=== PATIENT | female | born 1960 | race Caucasian/White ===

== ENCOUNTER 2018-07-14 06:14 | Inpatient (IN) | payer MEDICARE, BC ==
[2018-07-04 12:12] VITALS: BMI 36.1
--- NOTE | 2018-07-05 13:50 | PREOPHP ---
DATE OF ADMISSION: 07/14/2018 Patient to have surgery with Dr. Lata Godoy on 07/14/2018. REASON FOR CONSULTATION: Consultation requested by Dr. Lata Godoy for medical evaluation and lew arance of a 57-year-old woman about to undergo surgery. Thank you, Dr. Godoy for allowing us to participate in the care of this patient. Kaitlin Beltrán is a 57-year-old woman with multiple musculoskeletal problems, currently being admitted for a shoulder replacement on the right side for severe degenerative joint disease. HISTORY OF PRESENT ILLNESS: In terms of her past medical and surgical history, she has had no medica l hospitalizations and her deliveries were vaginal. PAST SURGICAL HISTORY: Has included the following: She had posterior spinal fusion L2 through L5, h ad a right total knee replacement, right ankle fusion and tibial precise insertion, had a right femur osteoplasty and iliotibial band release had a right femur osteoplasty carpal tunnel surgery, both wr ists. Right arm rotator cuff repair, biceps tendonitis and subacromial decompression and debridement and also had a total knee arthroscopic procedure on the left. She has not really broken any bones. MEDICATIONS: She is currently taking the following medications: 1. Levothyroxine 25 mcg per day. 2. Nature-Throid 32.5 mg per day. 3. Amlodipine/Valsartan 5/160 one a day. 4. Bystolic 10 mg a day. 5. Gabapentin 600 mg at night. 6. Progesterone 100 mg capsule in the evening. 7. Crestor 5 mg daily. 8. Estradiol patch 0.05 mcg q.24h patch twice a week. 9. Multivitamins. 10. Glucosamine. 11. Vitamin D. ALLERGIES: SHE IS ALLERGIC TO: 1. OXYCODONE 2. AMBIEN. SOCIAL HISTORY: The patient is , has 2 children, 1 grandchild. She does not smoke or drink a lcohol or coffee. Has no difficulty sleeping at night and is employed. FAMILY HISTORY: Both parents are of heart disease, hypertension in the father and mother radha th in their 50s. Three sisters are in good health. Family history of heart, cancer and hypertension as well as thyroid. REVIEW OF SYSTEMS HEENT: Denies any significant headaches. CARDIORESPIRATORY: Denies any chest pain or shortness of breath. GASTROINTESTINAL: No melena or hematemesis. GENITOURINARY: No urgency, frequency. GYNECOLOGIC: Postmenopausal up to date. MUSCULOSKELETAL: Positive for right shoulder pain. NEUROPSYCHIATRIC: Unremarkable. GENERAL HEALTH: As above. PHYSICAL EXAMINATION: VITAL SIGNS: The patient's blood pressure was 140/70, pulse was 68 and regular, respirations were 18 , temperature 97.6. Height 5 feet 2 inches, weight 201 pounds. GENERAL: The patient was noted to be a well-developed, well-nourished female, alert and cooperative, in no apparent acute distress, oriented to time, place, and person. HEAD, EARS, EYES, NOSE AND THROAT: Head was atraumatic. Eyes: Pupils were equal, reactive to light and accommodation. Fundi were grossly benign. Tympanic membranes were unremarkable. Nose was nega tive. Mouth was unremarkable. Fair oral hygiene was present. NECK: Supple without any rigidity. Trachea was midline. Thyroid was within normal limits. Neck ve ins were flat. Carotid pulses were equal. No bruits were heard. BACK: Unremarkable. CHEST: Other than scar from prior surgeries, chest was symmetrical. BREASTS AND AXILLARY: Did not reveal any obvious masses. LUNGS: Clear to percussion and auscultation. HEART: PMI is fifth intercostal space at the midclavicular line. Regular sinus rhythm was noted. N o significant murmurs, rubs, or gallops being elicited. ABDOMEN: Soft, good bowel sounds were noted. No significant organomegaly, masses, or tenderness. PELVORECTAL: Up to date per career coordinator. EXTREMITIES: Did not reveal any clubbing, edema or cyanosis. Scars were noted and deformities of radha th feet, but predominantly the right foot. Peripheral pulses were physiologic. SKIN: Moist and warm without any eruptions. No gross lymphadenopathy was noted. NEUROLOGIC: Grossly intact. IMPRESSION: 1. Degenerative joint disease, right shoulder. 2. Hypertension. 3. Hypothyroidism. 4. Degenerative joint disease. 5. Menopausal syndrome, on hormone replacement therapy. 6. Congenital deformities postop lower extremities. 7. Stable health. LABORATORY DATA: Review of laboratory and other data revealed the following: The patient's chemistr y panel revealed normal electrolytes, random glucose of 122. Normal BUN, creatinine, calcium, uric a estuardo, liver function tests were normal. Magnesium was slightly high at 2.2. Serum iron was slightly low at 55. CBC, UA, PT and PTT were normal. Patient's EKG was normal. Patient's chest x-ray reveal ed some degenerative joint disease of the spine, no acute infiltrates being noted nor any acute cardi opulmonary changes being noted. DISCUSSION: Dr. Godoy, I see no contraindication to this patient undergoing current proposed surge ry under desired form of anesthesia. I feel she is a suitable candidate at this particular point in time and will be more than happy to follow her along with you during her stay at [facility]. Thank you again, Dr. Godoy, for allowing us to participate in the care of this patient. Dictated By: DELTA RAMOS MD SS/NTS Conf#: [id number] DID#: [id number] CC: LATA GODOY MD;*EndCC*
[~2018-07-14] VITALS: Ht 157.5 cm; Wt 91.6 kg
[2018-07-14] VITALS (36 sets, daily range): BP systolic 108–151; BP diastolic 60–98; PULSE 71–114; RESP 13–23; Ht 157.5 cm; Wt 91.6 kg
--- NOTE | 2018-07-14 05:53 | HPN ---
Date/Time of Note Date/Time of Note DATE: 07/14/18 TIME: 05:52 Interval H&P Admission Note Pt. seen H&P reviewed: No system changes LATA GODOY MD Jul 14, 2018 05:53
--- NOTE | 2018-07-14 05:55 | OPR ---
Date/Time of Note Date/Time of Note DATE: 07/14/18 TIME: 05:53 Operative Report Procedure Date: Jul 14, 2018 Preoperative Diagnosis Right shoulder secondary arthritis Postoperative Diagnosis 1. Right shoulder secondary arthritis 2. Right shoulder massive, unrepairable rotator cuff tear Operation/Procedure Performed 1. Right reverse total shoulder replacement 2. Right shoulder injection of PRP Surgeon see signature line Fork Assembler Delvin Eldridge DO Anesthesia Type: general Estimated Blood Loss: 100 - 150 ml's Transfusion none Specimen None Grafts/Implants See op note Complications none Pt Condition Post Procedure: stable Disposition: PACU Procedure Description TELEVISION AUDIO ENGINEER SURGEON: Delvin Eldridge DO was asked to be present for this case at my request. Assistance was necessary as a result of the highly technical nature of this operation. When performing an open total shoulder replacement, it is critical to have a trained hospital medical assistant who is an expert in handling the extremity and assisting the surgeon in tasks such as manipulation of the arm, protection of the neurovascular structures and positioning the implants. This assistance cannot be performed by a rf technician, as it is considered an integral part of the procedure and the hospital medical assistant should be compensated for his time. PROCEDURE IN DETAIL: Following the administration of general anesthesia supplemented with a peripheral nerve block for postoperative pain control, the patient was examined under anesthesia. Examination of the right shoulder revealed very significant stiffness including a forward flexion of about 80 degrees abduction 60 degrees maximal external rotation 45 degrees with severe crepitus. There was anteroposterior escape of the humeral head, also. The left forearm was prepped and 60 cc of blood were drawn using a 60 cc syringe coated with anticoagulant. The blood was harvested from the patient and given to the retention representative who prepared PRP concentrate. The patient was then placed in the beach chair position. Sterile prep and drape was then undertaken. An extended deltopectoral incision was then carried through the interval exposing the conjoined tendon and retracting it medially. The superior aspect of the acromioclavicular joint was then identified. The AC capsule was incised and the distal clavicle skeletonized for a distance of 10 mm. Severe arthritic changes were noted. The clavicle was then osteotomized and 10 mm were removed. The joint was irrigated and closed using #2 sutures. Attention was then directed back to the deltopectoral interval and the subscapularis was noted to be partially disrupted superiorly. Severe arthritic changes were noted with very large peripheral osteophytes. The superior rotator cuff was torn and retracted. The biceps tendon was chronically torn and retracted A humeral head osteotomy was then created in the appropriate degree of version and inclination. The humerus was retracted and the glenoid was exposed. Peripheral osteophytes were removed and a complete capsulectomy performed. The central canal of the glenoid was then entered and prepared for a size entered Depuy baseplate. A standard Depuy baseplate was then applied with four peripheral screws and solid fixation. A 38 mm glenosphere was then applied, with solid fixation. The humerus was then reamed and prepared for a 8 mm humeral component with a standard metaphyseal component and a 6 mm liner. The shaft was irrigated and the PRP injection was placed within the canal the actual components were implanted with solid fixation. The arm was taken through full range of motion with no evident instability. The joint was then thoroughly irrigated, the deep tissues were approximated using #1 suture followed by closure of the deep layer using 2-0 Monocryl. The skin was closed using 4-0 Monocryl suture, and a Prenio dressing. An Ultrasling was then applied. The patient was awakened and transported to the recovery room in stable condition. Estimated blood loss for this procedure was 150 cc. Radiographs will be obtained in the recovery room. LATA GODOY MD Jul 14, 2018 05:55
[~2018-07-14 06:14] MED LIST: AMLO-350 PO; CHOL100062 PO; CRES5 PO; ESTR1PAT45 TD; GABA-526 PO; GLUC15006 PO; LEVO25TA50 PO; MULTI PO; PROG100C15 PO; TEMA15CA PO; THYR32.58 PO
[2018-07-14] MEDS ORDERED: GABAPENTIN 300 MG CAP PO ONE (06:30)
[2018-07-14] MEDS ORDERED: DEXAMETHASONE 1 MG TAB PO ONE (06:30)
[2018-07-14] MEDS ORDERED: CEFAZOLIN 2 GM/50 ML (PMX) 50 ML IVPB ONE (06:30)
[2018-07-14] MEDS ORDERED: BUPIVACAINE 0.5% (SDV) 30 ML, morphine SULFATE (PF) 8 MG, EPINEPHrine 0.3 MG, KETOROLAC... IRR SCH ×7 (06:30)
[2018-07-14] MEDS ORDERED: TRANEXAMIC ACID 1,000 MG in DEXTROSE 5% 100 ML IVPB ONE (06:30)
[2018-07-14] MEDS ORDERED: POLYMYXIN/BACITRACIN 1L IRRIG ONE (07:06)
[2018-07-14] MEDS ORDERED: BUPIVACAINE 0.5%/EPI (SDV) 30 ML INJ ONE (07:06)
[2018-07-14] MEDS ORDERED: THROMBIN 5000 UNIT VIAL ONE (07:06)
[2018-07-14] MEDS ORDERED: CA CHLORIDE 10% 10 ML SYRINGE ONE (07:06)
--- NOTE | 2018-07-14 08:01 | PREAC ---
Date/Time of Note Date/Time of Note DATE: 07/14/18 TIME: 07:59 Anesthesia Eval and Record Evaluation Time Pre-Procedure Interview DATE: 07/14/18 TIME: 07:59 Age 57 Sex female NPO: 8 hrs Preoperative diagnosis Right Shoulder OA Planned procedure Right Reverse Total Shoulder Replacement Past Medical History Past Medical History: Includes Cardio: HTN, Dyslipidemia Endo: Hypothyroid GI: Obesity Surgery & Anesthesia Issues No known issue Meds Anticoagulation: No Beta Anthony within 24 hr: No Reason Beta Anthony not given: Pt. not on B-Anthony Reported Medications Glucosamine Hcl (Glucosamine Hcl) 1,500 Mg Tablet, 1500 MG PO DAILY, TAB 07/04/18 Temazepam* (Temazepam*) 15 Mg Capsule, 15-30 MG PO HS PRN for INSOMNIA, CAP 07/04/18 Cholecalciferol* (Vitamin D3*) 1,000 Unit Tablet, 1000 UNIT PO DAILY, TAB 07/04/18 Multivitamins* (Theragran*) 1 Tab Tab, 1 TAB PO DAILY, TAB 07/04/18 Estradiol/Levonorgestrel (Climara Pro Patch) 1 Each Patch.tdwk, 1 EACH TD EVERY WEDNESDAY AND WED PT HAS PATCH ON 07-14-18 07/04/18 Rosuvastatin Calcium* (Crestor*) 5 Mg Tablet, 5 MG PO QHS, #30 TAB 07/04/18 Progesterone,Micronized* (Prometrium*) 100 Mg Capsule, 100 MG PO HS, CAP 07/04/18 Gabapentin* (Gabapentin*) 600 Mg Tablet, 600 MG PO QHS, #60 TAB 07/04/18 Amlodipine/Valsartan (Amlodipine-Valsartan 5-160 mg) 1 Each Tablet, 1 TAB PO DAILY, #30 TAB PT HAS MED IN CASE WE DONT HAVE IN THE PHARMACY 07/04/18 Thyroid,Pork (Nature-Throid) 32.5 Mg Tablet, 32.5 MG PO DAILY, TAB TO BE TAKEN WITH LEVOTHYROXINE 07/04/18 Levothyroxine Sodium* (Levoxyl*) 25 Mcg Tablet, 25 MCG PO BEFORE BREAKFAST, #30 TAB 07/04/18 Meds reviewed: Yes Allergies Coded Allergies: acetaminophen (Verified Adverse Reaction, Unknown, NIGHTMARES, 07/14/18) oxycodone (Verified Adverse Reaction, Unknown, NIGHTMARES, 07/14/18) zolpidem (Verified Adverse Reaction, Unknown, NIGHTMARES, 07/14/18) Allergies Reviewed: Yes Labs/Studies Labs Reviewed: Reviewed by anesthesiologist test: N/A Studies: ECG (n/a), CXR (n/a) Pre-procedure Exam Last vitals Vital Signs Date Temp Pulse Resp B/P (MAP) Pulse Ox O2 O2 Flow FiO2 Time Delivery Rate 07/14/18 97.1 71 18 136/84 97 Room Air 07:10 (101) Airway: Adequate mouth opening, Adequate thyromental dist Mallampati: Mallampati II Teeth: Normal Lung: Normal Heart: Normal ASA Physical Status ASA physical status: 3 Emergency: None Planned Anesthetic General/MAC: ETT Nerve block: Brachial plexus (right) Planned Pain Management Single shot nerve block, Parenteral pain med Pre-operative Attestations Prior to commencing anesthesia and surgery, the patient was re-evaluated, there was verification of: *The patient's identity *The results of appropriate recent lab work and preoperative vital signs *The above evaluation not changing prior to induction *Anesthetic plan, risk benefits, alternative and complications discussed with patient/family; questions answered; patient/family understands, accepts and wishes to proceed. JEAN CONNORS MD Jul 14, 2018 08:00
[2018-07-14] MEDS ORDERED: PROPOFOL 20 ML ONE (08:04)
[2018-07-14] MEDS ORDERED: ROPIVACAINE 0.5 % 30 ML VIAL ONE (08:04)
[2018-07-14] MEDS ORDERED: MIDAZOLAM 1 MG/ML 2 ML INJ ONE (08:04)
[2018-07-14] MEDS ORDERED: CEFAZOLIN 1 GM INJ ONE (08:04)
[2018-07-14] MEDS ORDERED: ROCURONIUM 50 MG INJ ONE (08:04)
[2018-07-14] MEDS ORDERED: FENTAnyl 50 MCG/ML VIAL IV PRN ×3 (08:30)
[2018-07-14] MEDS ORDERED: DIPHENHYDRAMINE 50 MG INJ IV PRN ×2 (08:30→10:30)
[2018-07-14] MEDS ORDERED: LABETALOL HCL 20MG INJ IV PRN (08:30)
[2018-07-14] MEDS ORDERED: ONDANSETRON 4 MG INJ IV PRN ×2 (08:30→10:30)
[2018-07-14] MEDS ORDERED: MEPERIDINE 25 MG INJ IV PRN (08:30)
[2018-07-14] MEDS ORDERED: METOCLOPRAMIDE 10 MG INJ ONE (08:30)
[2018-07-14] MEDS ORDERED: METOCLOPRAMIDE 10 MG INJ IV PRN (08:30)
[2018-07-14] MEDS ORDERED: DEXAMETHASONE 4 MG/ML 5 ML INJ ONE (08:30)
[2018-07-14] MEDS ORDERED: hydrALAzine 20 MG INJ IV PRN (08:30)
[2018-07-14] MEDS ORDERED: ONDANSETRON 4 MG INJ ONE (08:30)
[2018-07-14] MEDS ORDERED: KETOROLAC 30 MG INJ ONE (08:30)
[2018-07-14] MEDS ORDERED: HYDROmorphONE 1 MG/5 ML IV SYRINGE IV PRN ×3 (08:30)
[2018-07-14] MEDS ORDERED: EPHEDrine SULFATE 50 MG/5 ML SYG IV PRN (08:30)
[2018-07-14] MEDS ORDERED: POLYMYXIN/BACITRACIN 1L IRRIG IRR ONE (09:20)
[2018-07-14] MEDS ORDERED: SUGAMMADEX SODIUM 200 MG/2 ML VIAL IV ONE (10:04)
[2018-07-14] MEDS ORDERED: LOPERAMIDE 2 MG CAP PO PRN (10:30)
[2018-07-14] MEDS ORDERED: MAGNESIUM HYDROXIDE 30ML CUP PO PRN (10:30)
[2018-07-14] MEDS ORDERED: oxyCODONE 5 MG TAB PO PRN ×3 (10:30)
[2018-07-14] MEDS ORDERED: ZOLPIDEM 5 MG TAB PO PRN (10:30)
[2018-07-14] MEDS ORDERED: KETOROLAC 15 MG INJ IV PRN (10:30)
[2018-07-14] MEDS ORDERED: NACL 0.9% 3 ML SYG IV SCH (10:30)
--- NOTE | 2018-07-14 10:31 | PAC ---
Date/Time of Note Date/Time of Note DATE: 07/14/18 TIME: 10:30 Post-Anesthesia Notes Post-Anesthesia Note Last documented vital signs Vital Signs Date Temp Pulse Resp B/P (MAP) Pulse Ox O2 O2 Flow FiO2 Time Delivery Rate 07/14/18 97.9 71 18 136/84 97 Face Mask 8 L 10:30 (101) Activity: WNL Respiratory function: WNL Cardiovascular function: WNL Mental status: Baseline Pain reasonably controlled: Yes Hydration appropriate: Yes Nausea/Vomiting absent: Yes JEAN CONNORS MD Jul 14, 2018 10:31
[2018-07-14] MEDS ORDERED: CEFAZOLIN 1 GM/50 ML (PMX) 50 ML IVPB ONE (10:36)
[2018-07-14] MEDS: CEFAZOLIN 1 GM/50 ML (PMX) 50 ML IVPB SCH ×2 (11:28→18:06)
[2018-07-14] MEDS: DEXAMETHASONE 2 MG TAB PO SCH ×3 (12:00→23:30)
[2018-07-14] MEDS: ACETAMINOPHEN 500 MG TAB PO SCH ×3 (12:00→23:34)
[2018-07-14] MEDS ORDERED: TRANEXAMIC ACID 1,000 MG in SOD CHLORIDE 0.9% 100 ML IVPB SCH (12:00)
--- NOTE | 2018-07-14 17:59 | CONS ---
Date/Time of Note Date/Time of Note DATE: 07/14/18 TIME: 17:55 Consult Date/Type/Reason Admit Date/Time Jul 14, 2018 at 06:14 Initial Consult Date 07/04/2018 Type of Consultation: internal medicine Reason for Consultation pre-op evaluation and clearance Requesting Provider: LATA GODOY MD Subjective no complaints comfortable post op Objective Vital Signs Date Temp Pulse Resp B/P (MAP) Pulse Ox O2 O2 Flow FiO2 Time Delivery Rate 07/14/18 98.3 96 13 119/78 96 Nasal 2.0 11:26 (92) Cannula Exam vital signs stable HEENT negative lungs clear heart regular rhythm Results/Medications Medications Current Medications Fentanyl (Sublimaze) 25 mcg PACU ORDER PRN IV MILD PAIN LEVEL 1-3; Start 07/14/18 at 08:30; Stop 07/14/18 at 18:00 Fentanyl (Sublimaze) 50 mcg PACU ORDER PRN IV MODERATE PAIN LEVEL 4-6; Start 07/14/18 at 08:30; Stop 07/14/18 at 18:00 Fentanyl (Sublimaze) 75 mcg PACU ORDER PRN IV SEVERE PAIN LEVEL 7-10; Start 07/14/18 at 08:30; Stop 07/14/18 at 18:00 Ondansetron HCl (Zofran Inj) 4 mg PACU ORDER PRN IV NAUSEA AND/OR VOMITING; Start 07/14/18 at 08:30; Stop 07/14/18 at 18:00 Metoclopramide HCl (Reglan) 10 mg PACU ORDER PRN IV NAUSEA AND/OR VOMITING; Start 07/14/18 at 08:30; Stop 07/14/18 at 18:00 Labetalol HCl (Labetalol) 5 mg PACU ORDER PRN IV ELEVATED BLOOD PRESSURE; Start 07/14/18 at 08:30; Stop 07/14/18 at 18:00 Hydralazine HCl (Apresoline) 5 mg PACU ORDER PRN IV ELEVATED BLOOD PRESSURE; Start 07/14/18 at 08:30; Stop 07/14/18 at 18:00 Ephedrine Sulfate 5 mg PACU ORDER PRN IV BLOOD PRESSURE SUPPORT; Start 07/14/18 at 08:30; Stop 07/14/18 at 18:00 Meperidine HCl (Demerol) 25 mg PACU ORDER PRN IV POST OPERATIVE SHIVERING; Start 07/14/18 at 08:30; Stop 07/14/18 at 18:00 Diphenhydramine HCl (Benadryl) 25 mg PACU ORDER PRN IV PRURITUS; Start 07/14/18 at 08:30; Stop 07/14/18 at 18:00 Gabapentin (Neurontin) 600 mg QHS PO ; Start 07/14/18 at 21:00 Levothyroxine Sodium (Synthroid) 25 mcg BEFORE BREAKFAST PO ; Start 07/15/18 at 07:00 Progesterone (Prometrium) 100 mg HS PO ; Start 07/14/18 at 21:00 Amlodipine Besylate (Norvasc) 5 mg DAILY PO ; Start 07/15/18 at 09:00 Miscellaneous Information 32.5 mg DAILY PO ; Start 07/15/18 at 09:00; Status UNV Cefazolin Sodium 50 ml @ 100 mls/hr Q8H IVPB Last administered on 07/14/18at 11:28; Admin Dose 100 MLS/HR; Start 07/14/18 at 10:30; Stop 07/15/18 at 02:59 Senna/Docusate Sodium (Senokot-S) 1 tab BID PO ; Start 07/14/18 at 21:00 Simethicone (Mylicon) 80 mg TID PRN PO DISTENSION/GAS/BLOATING; Start 07/14/18 at 10:30 Magnesium Hydroxide (Milk Of Mag) 30 ml BID PRN PO CONSTIPATION; Start 07/14/18 at 10:30 Loperamide HCl (Imodium Cap) 2 mg Q6H PRN PO DIARRHEA; Start 07/14/18 at 10:30 Dexamethasone (Decadron) 2 mg Q6 PO Last administered on 07/14/18at 12:00; Admin Dose 2 MG; Start 07/14/18 at 12:00; Stop 07/15/18 at 06:01 Acetaminophen (Tylenol Tab) 500 mg Q6 PO Last administered on 07/14/18at 12:00; Admin Dose 500 MG; Start 07/14/18 at 12:00 Oxycodone HCl (Roxicodone) 15 mg Q4H PRN PO PAIN; Start 07/14/18 at 10:30 Oxycodone HCl (Roxicodone) 10 mg Q4H PRN PO PAIN; Start 07/14/18 at 10:30 Oxycodone HCl (Roxicodone) 5 mg Q4H PRN PO PAIN; Start 07/14/18 at 10:30 Hydromorphone HCl (Dilaudid) 1 mg Q4H PRN IV BREAKTHROUGH PAIN; Start 07/14/18 at 10:30 Ketorolac Tromethamine (Toradol) 15 mg Q6H PRN IV PAIN; Start 07/14/18 at 10:30 Ondansetron HCl (Zofran Inj) 4 mg Q6H PRN IV NAUSEA AND/OR VOMITING; Start 07/14/18 at 10:30 Diphenhydramine HCl (Benadryl) 25 mg Q6H PRN IV PRURITUS; Start 07/14/18 at 10:30 IV Flush (NS 3 ml) 3 ml per protocol IV ; Start 07/14/18 at 10:30 Atorvastatin Calcium (Lipitor) 20 mg DAILY@21 PO ; Start 07/14/18 at 21:00 Losartan Potassium (Cozaar) 100 mg DAILY PO ; Start 07/15/18 at 09:00 Assessment/Plan Chief Complaint/Hosp Course status post right shoulder replacement doing well Additional Assessment/Plan pre-op meds reordered will follow with you thank you DELTA Campbell MD Jul 14, 2018 17:59
[2018-07-14] MEDS: SENNA/DOCUSATE NA (8.6MG/50MG) TAB PO SCH (20:14)
[2018-07-14] MEDS ORDERED: PROGESTERONE 100 MG CAP PO SCH (21:00)
[2018-07-14] MEDS ORDERED: ATORVASTATIN 20 MG TAB PO SCH (21:00)
[2018-07-14] MEDS ORDERED: GABAPENTIN 300 MG CAP PO SCH ×2 (21:00)
[2018-07-14] MEDS ORDERED: LORAZEPAM 1 MG TAB PO PRN (21:00)
[2018-07-14] MEDS ORDERED: NON-FORMULARY/PATIENT OWN MED (Rosuvastatin Calcium* (Crestor*) 5 MG) PO SCH (21:00)
[2018-07-14] MEDS: HYDROmorphONE 1 MG/ML SYG IV PRN (23:18)
[2018-07-15 00:03] VITALS: BP 129/71; PULSE 101; RESP 20
[2018-07-15] MEDS: CEFAZOLIN 1 GM/50 ML (PMX) 50 ML IVPB SCH (02:50)
[2018-07-15] MEDS: HYDROmorphONE 1 MG/ML SYG IV PRN ×2 (04:18→08:03)
[2018-07-15 05:00] VITALS: BP 131/69; PULSE 99; RESP 18
--- NOTE | 2018-07-15 06:09 | PN ---
Date/Time of Note Date/Time of Note DATE: 07/15/18 TIME: 06:08 Subjective Awake alert with minimal complaints. Objective Vitals Vital Signs Date Temp Pulse Resp B/P (MAP) Pulse Ox O2 O2 Flow FiO2 Time Delivery Rate 07/15/18 98.1 101 20 129/71 96 00:03 (90) 07/14/18 Room Air 16:03 07/14/18 2.0 13:56 Intake and Output 07/14/18 07/14/18 07/15/18 1515:00 23:00 07:00 IntakeIntake Total 1110 ml 780 ml 50 ml OutputOutput Total 50 ml 700 ml 1000 ml BalanceBalance 1060 ml 80 ml -950 ml Wound clean and dry. Neurologically intact. No signs of DVT. Medications Medications Current Medications Gabapentin (Neurontin) 600 mg QHS PO Last administered on 07/14/18at 20:14; Admin Dose 600 MG; Start 07/14/18 at 21:00 Levothyroxine Sodium (Synthroid) 25 mcg BEFORE BREAKFAST PO ; Start 07/15/18 at 07:00 Progesterone (Prometrium) 100 mg HS PO Last administered on 07/14/18at 20:14; Admin Dose 100 MG; Start 07/14/18 at 21:00 Amlodipine Besylate (Norvasc) 5 mg DAILY PO ; Start 07/15/18 at 09:00 Miscellaneous Information 32.5 mg DAILY PO ; Start 07/15/18 at 09:00; Status UNV Senna/Docusate Sodium (Senokot-S) 1 tab BID PO Last administered on 07/14/18at 20:14; Admin Dose 1 TAB; Start 07/14/18 at 21:00 Simethicone (Mylicon) 80 mg TID PRN PO DISTENSION/GAS/BLOATING; Start 07/14/18 at 10:30 Magnesium Hydroxide (Milk Of Mag) 30 ml BID PRN PO CONSTIPATION; Start 07/14/18 at 10:30 Loperamide HCl (Imodium Cap) 2 mg Q6H PRN PO DIARRHEA; Start 07/14/18 at 10:30 Acetaminophen (Tylenol Tab) 500 mg Q6 PO Last administered on 07/14/18at 23:34; Admin Dose 500 MG; Start 07/14/18 at 12:00 Oxycodone HCl (Roxicodone) 15 mg Q4H PRN PO PAIN; Start 07/14/18 at 10:30 Oxycodone HCl (Roxicodone) 10 mg Q4H PRN PO PAIN; Start 07/14/18 at 10:30 Oxycodone HCl (Roxicodone) 5 mg Q4H PRN PO PAIN; Start 07/14/18 at 10:30 Hydromorphone HCl (Dilaudid) 1 mg Q4H PRN IV BREAKTHROUGH PAIN Last administered on 07/15/18at 04:18; Admin Dose 1 MG; Start 07/14/18 at 10:30 Ketorolac Tromethamine (Toradol) 15 mg Q6H PRN IV PAIN; Start 07/14/18 at 10:30 Ondansetron HCl (Zofran Inj) 4 mg Q6H PRN IV NAUSEA AND/OR VOMITING; Start 07/14/18 at 10:30 Diphenhydramine HCl (Benadryl) 25 mg Q6H PRN IV PRURITUS; Start 07/14/18 at 10 :30 IV Flush (NS 3 ml) 3 ml per protocol IV ; Start 07/14/18 at 10:30 Atorvastatin Calcium (Lipitor) 20 mg DAILY@21 PO Last administered on 07/14/18at 20:11; Admin Dose 20 MG; Start 07/14/18 at 21:00 Losartan Potassium (Cozaar) 100 mg DAILY PO ; Start 07/15/18 at 09:00 Lorazepam (Ativan) 1 mg QHS PRN PO INSOMNIA; Start 07/14/18 at 21:00 VTE Prophylaxis Risk score (from Nsg)>0 risk: 8 SCD applied (from Ns): Yes Lines/Catheters IV Catheter Type: Saline Lock Angela in Place: No Assessment/Plan Assessment/Plan Assessment: Status post total shoulder Plan: Discharge home after PT LATA GODOY MD Jul 15, 2018 06:09
--- NOTE | 2018-07-15 06:10 | PDOCDIS ---
Discharge Instructions DIAGNOSIS Discharge Diagnosis Shoulder arthritis CONDITION [id number] Patient Condition: [id number] Good HOME CARE INSTRUCTIONS: [id number] Diet Instructions: [id number] Regular [id number] Special Diet: [id number] REGULAR DIET ACTIVITY: [id number] Activity Restrictions: [id number] Rest between Activity Keep Limb Elevated [id number] Bathing Restrictions: [id number] Shower FOLLOW UP/APPOINTMENTS Follow-up Plan 2 weeks in the office SCHOOL/WORK RELEASE May return to School/Work with: With Restrictions School/Work Release Comment: 5 pound tabletop usage LATA GODOY MD Jul 15, 2018 06:10
--- NOTE | 2018-07-15 06:10 | DS ---
Date/Time of Note Date/Time of Note DATE: 07/15/18 TIME: 06:10 Discharge Summary Admission/Discharge Info Admit Date/Time Jul 14, 2018 at 06:14 Discharge Date/Time July 15, 2018 Discharge Diagnosis Shoulder arthritis Patient Condition: Good Hospital Course Admitted and underwent uncomplicated procedure. Postop day 1 discharge home after therapy Home Meds Reported Medications Glucosamine Hcl (Glucosamine Hcl) 1,500 Mg Tablet, 1500 MG PO DAILY, TAB 07/04/18 Temazepam* (Temazepam*) 15 Mg Capsule, 15-30 MG PO HS PRN for INSOMNIA, CAP 07/04/18 Cholecalciferol* (Vitamin D3*) 1,000 Unit Tablet, 1000 UNIT PO DAILY, TAB 07/04/18 Multivitamins* (Theragran*) 1 Tab Tab, 1 TAB PO DAILY, TAB 07/04/18 Estradiol/Levonorgestrel (Climara Pro Patch) 1 Each Patch.tdwk, 1 EACH TD EVERY WEDNESDAY AND WED PT HAS PATCH ON 07-14-18 07/04/18 Rosuvastatin Calcium* (Crestor*) 5 Mg Tablet, 5 MG PO QHS, #30 TAB 07/04/18 Progesterone,Micronized* (Prometrium*) 100 Mg Capsule, 100 MG PO HS, CAP 07/04/18 Gabapentin* (Gabapentin*) 600 Mg Tablet, 600 MG PO QHS, #60 TAB 07/04/18 Amlodipine/Valsartan (Amlodipine-Valsartan 5-160 mg) 1 Each Tablet, 1 TAB PO DAILY, #30 TAB PT HAS MED IN CASE WE DONT HAVE IN THE PHARMACY 07/04/18 Thyroid,Pork (Nature-Throid) 32.5 Mg Tablet, 32.5 MG PO DAILY, TAB TO BE TAKEN WITH LEVOTHYROXINE 07/04/18 Levothyroxine Sodium* (Levoxyl*) 25 Mcg Tablet, 25 MCG PO BEFORE BREAKFAST, #30 TAB 07/04/18 Follow-up Plan 2 weeks in the office Primary Care Provider Not On Staff Doctor LATA GODOY MD Jul 15, 2018 06:10
[2018-07-15] MEDS: DEXAMETHASONE 2 MG TAB PO SCH (06:13)
[2018-07-15] MEDS: ACETAMINOPHEN 500 MG TAB PO SCH (06:13)
[2018-07-15] MEDS ORDERED: LEVOTHYROXINE 25 MCG TAB PO SCH (07:00)
[2018-07-15 07:25] VITALS: BP 151/72; PULSE 98; RESP 19
--- NOTE | 2018-07-15 07:50 | CONS ---
Date/Time of Note Date/Time of Note DATE: 07/15/18 TIME: 07:47 Consult Date/Type/Reason Admit Date/Time Jul 14, 2018 at 06:14 Initial Consult Date 07/04/2018 Type of Consultation: internal medicine Reason for Consultation medical post-op f/u Requesting Provider: LATA GODOY MD Subjective feeling well had trouble sleeping due to usual medication not available Objective Vital Signs Date Temp Pulse Resp B/P (MAP) Pulse Ox O2 O2 Flow FiO2 Time Delivery Rate 07/15/18 98.2 98 19 151/72 98 07:25 (98) 07/15/18 Room Air 05:00 07/14/18 2.0 13:56 Intake and Output 07/14/18 07/14/18 07/15/18 1515:00 23:00 07:00 IntakeIntake Total 1110 ml 780 ml 50 ml OutputOutput Total 50 ml 700 ml 1000 ml BalanceBalance 1060 ml 80 ml -950 ml Exam vital signs stable HEENT negative Results/Medications Medications Current Medications Gabapentin (Neurontin) 600 mg QHS PO Last administered on 07/14/18at 20:14; Admin Dose 600 MG; Start 07/14/18 at 21:00 Levothyroxine Sodium (Synthroid) 25 mcg BEFORE BREAKFAST PO Last administered on 07/15/18at 06:13; Admin Dose 25 MCG; Start 07/15/18 at 07:00 Progesterone (Prometrium) 100 mg HS PO Last administered on 07/14/18at 20:14; Admin Dose 100 MG; Start 07/14/18 at 21:00 Amlodipine Besylate (Norvasc) 5 mg DAILY PO ; Start 07/15/18 at 09:00 Miscellaneous Information 32.5 mg DAILY PO ; Start 07/15/18 at 09:00; Status UNV Senna/Docusate Sodium (Senokot-S) 1 tab BID PO Last administered on 07/14/18at 20:14; Admin Dose 1 TAB; Start 07/14/18 at 21:00 Simethicone (Mylicon) 80 mg TID PRN PO DISTENSION/GAS/BLOATING; Start 07/14/18 at 10:30 Magnesium Hydroxide (Milk Of Mag) 30 ml BID PRN PO CONSTIPATION; Start 07/14/18 at 10:30 Loperamide HCl (Imodium Cap) 2 mg Q6H PRN PO DIARRHEA; Start 07/14/18 at 10:30 Acetaminophen (Tylenol Tab) 500 mg Q6 PO Last administered on 07/15/18at 06:13; Admin Dose 500 MG; Start 07/14/18 at 12:00 Oxycodone HCl (Roxicodone) 15 mg Q4H PRN PO PAIN; Start 07/14/18 at 10:30 Oxycodone HCl (Roxicodone) 10 mg Q4H PRN PO PAIN; Start 07/14/18 at 10:30 Oxycodone HCl (Roxicodone) 5 mg Q4H PRN PO PAIN; Start 07/14/18 at 10:30 Hydromorphone HCl (Dilaudid) 1 mg Q4H PRN IV BREAKTHROUGH PAIN Last administered on 07/15/18at 04:18; Admin Dose 1 MG; Start 07/14/18 at 10:30 Ketorolac Tromethamine (Toradol) 15 mg Q6H PRN IV PAIN; Start 07/14/18 at 10:30 Ondansetron HCl (Zofran Inj) 4 mg Q6H PRN IV NAUSEA AND/OR VOMITING; Start 07/14/18 at 10:30 Diphenhydramine HCl (Benadryl) 25 mg Q6H PRN IV PRURITUS; Start 07/14/18 at 10:30 IV Flush (NS 3 ml) 3 ml per protocol IV ; Start 07/14/18 at 10:30 Atorvastatin Calcium (Lipitor) 20 mg DAILY@21 PO Last administered on 07/14/18at 20:11; Admin Dose 20 MG; Start 07/14/18 at 21:00 Losartan Potassium (Cozaar) 100 mg DAILY PO ; Start 07/15/18 at 09:00 Lorazepam (Ativan) 1 mg QHS PRN PO INSOMNIA; Start 07/14/18 at 21:00 Assessment/Plan Chief Complaint/Hosp Course status post right shoulder replacement doing well Additional Assessment/Plan plan per Demi Jenkins going [facility] today with [facility], 2018 07:50
[2018-07-15] MEDS: SENNA/DOCUSATE NA (8.6MG/50MG) TAB PO SCH (08:24)
[2018-07-15] MEDS ORDERED: AMLODIPINE 5 MG TAB PO SCH (09:00)
[2018-07-15] MEDS ORDERED: NON-FORMULARY/PATIENT OWN MED (Thyroid,Pork (Nature-Throid) 32.5 MG) PO SCH (09:00)
[2018-07-15] MEDS ORDERED: LOSARTAN 50 MG TAB PO SCH (09:00)
== END 2018-07-15 11:42 | disposition home or self-care (01) | DRG 483 ==
LOC: REC 06:14 → MS1 16:10
PROVIDERS: ADMIT Orthopaedic Surgery; ATTEND Orthopaedic Surgery
PROC: 0RRJ00Z Replacement of Right Shoulder Joint with Reverse Ball and Socket Synthetic Substitute, Open Approach (ICD-10-PCS; principal; 2018-07-14 08:00)
DX: M19.211 Secondary osteoarthritis, right shoulder (principal); M75.101 Unspecified rotator cuff tear or rupture of right shoulder, not specified as traumatic; S46.211A Strain of muscle, fascia and tendon of other parts of biceps, right arm, initial encounter; I10 Essential (primary) hypertension; E78.5 Hyperlipidemia, unspecified; E03.9 Hypothyroidism, unspecified; E66.9 Obesity, unspecified; Z68.36 Body mass index [BMI] 36.0-36.9, adult
CPT/HCPCS: 86999; 88304; 88311; 97167; C1776; J0171; J0690; J0735; J1100; J1170; J1885; J2250; J2274; J2405; J2765; J2795; J3010; J3370